=== PATIENT | male | born 1930 | race Caucasian/White ===

== ENCOUNTER 2017-05-16 05:17 | Emergency (ER) | payer MEDICARE ==
[~2017-05-16] VITALS: Ht 182.9 cm; Wt 81.6 kg
[2017-05-16 08:04] VITALS: BP 133/64
[2017-05-16] MEDS ORDERED: MORPHINE SULFATE 4 MG/ML SYR/VIAL IV ONE (08:45)
[2017-05-16] MEDS ORDERED: ONDANSETRON HCL 4 MG/2 ML VIAL IV ONE (08:45)
== END 2017-05-16 09:05 | disposition home or self-care (01) ==
LOC: EDBD 05:17 → ER 05:24
DX: S52.512A Displaced fracture of left radial styloid process, initial encounter for closed fracture (principal); I10 Essential (primary) hypertension; W01.0XXA Fall on same level from slipping, tripping and stumbling without subsequent striking against object, initial encounter; Y93.89 Activity, other specified; Y99.8 Other external cause status; Y92.89 Other specified places as the place of occurrence of the external cause
CPT/HCPCS: 29125; 73100; 73502; 96374; 96375; 99284; J2270; J2405; 93005